=== PATIENT | female | born 1945 | race Caucasian/White ===

== ENCOUNTER 2016-12-30 10:07 | Emergency (ER) | payer OTHER ==
[2016-12-30 09:44] LABS: BASOPHILS 0.5 %; BASOPHILS ABSOLUTE 0.03 10/3/uL (0.0-0.16); EOSINOPHILS 0.7 %; EOSINOPHILS ABSOLUTE 0.04 10/3/uL (0.0-0.53); ER CBC TAT 0 Hrs 03 Mins; HEMATOCRIT 40.1 % (36.0-48.0); HEMOGLOBIN 13.6 g/dL (12.0-16.0); IMMATURE GRANULOCYTES 0.3 %; IMMATURE GRANULOCYTES ABSOLUTE 0.02 10/3/uL (0.0-0.11); LYMPHOCYTES 16.8 %; LYMPHOCYTES ABSOLUTE 0.99 10/3/uL (0.67-4.30); MEAN CORPUS HGB CONC 33.9 g/dL (32.0-36.0); MEAN CORPUSCULAR HEMOGLOB 29.9 pg (26.0-34.0); MEAN CORPUSCULAR VOLUME 88.1 fL (80-100); MEAN PLATELET VOLUME 9.4 fL (9.2-13.0); MONOCYTES 6.8 %; NEUTROPHILS 74.9 %; NEUTROPHILS ABSOLUTE 4.42 10/3/uL (2.02-8.40); PLATELET COUNT 280 10/3/uL (150-400); RBC DISTRIBUTION WIDTH 14.2 % (12.0-16.0); RED CELL COUNT 4.55 10/6/uL (4.0-5.6); WHITE BLOOD CELLS 5.9 10/3/uL (4.5-10.5)
[2016-12-30 09:45] LABS: MANUAL DIFF NO %
[2016-12-30 09:52] LABS: PARTIAL THROMBO TIME 24.4 SEC (22.5-37.2); PROTIME (NOT ORD) 12.9 SEC (12.0-14.5)
[2016-12-30 10:01] LABS: BUN (BLOOD UREA NITROGEN) 21 MG/DL (6-23); CALCIUM, SERUM 9.2 MG/DL (8.5-10.4); CHEST PAIN PROFILE TAT 0 Hrs 20 Mins; CHLORIDE, SERUM 93 MMOL/L (96-112); CO2 (CARBON DIOXIDE) 27 MMOL/L (24-34); CREATININE 1.22 MG/DL (0.55-1.02); GFR AFRICAN AMERICAN 52 ML/MIN (>=60); GFR NON AFRICAN AMERICAN 45 ML/MIN (>=60); GLUCOSE, SERUM 558 MG/DL (60-99); POTASSIUM, SERUM 4.2 MMOL/L (3.5-5.3); SODIUM, SERUM 131 MMOL/L (135-148); TROPONIN I <0.02 NG/ML (<0.05)
[~2016-12-30 10:07] MED LIST: ADDERALL30 MG PO; ADDERXR10 PO; ASAB PO; BUDEPRION150 MG PO; BUM2 PO; BUPROBAN150 MG PO; C5; CAT1 PO; CENTRUM SILVER PO; FLEX PO; FORTAMET1000 MG PO; GLUCOPHAGE1000 MG PO; GLUCXL2.5 PO; GLUMETZA500 MG PO; HYGROTON 25 MG25 MG PO; IMDUR30 PO; ISORDTITRA PO; ISOSORB DIN30 MG PO; ISOSORBIDE MONONITRA PO; JANUMET1 TAB PO; KAPIDEX60 MG PO; L40 PO; LANTUS SC; LEVEMIR SC; LEVOTHYROXIN112 MCG PO; LEVOTHYROXIN75 MCG PO; LOP25 PO; LOTE20 PO; LOTE40 PO; MAXITOINT OPH; METADATE CD10 MG OR; MIRAPEX250 PO; MIRAPEX5 PO; NEUR300 PO; NORV10 PO; NOVOLOG SC; OXYIR5 MG PO; PRILO PO; PRILOSEC40 MG PO; PROAIR HFA INH; PROVHFA INH; RITALIN LA30 MG PO; RITALIN20 PO; SPIRO25 PO; SYN112 PO; TYLENOL #3 PO; VENTOLIN HFA INH; VICTOZA18 MG/3 ML SC; VITAMIN D1000 UNI1 PO; VITAMIN D2000 UNIT PO; WELL75 PO; X5 PO; ZANTAC 75 PO; ZOL100 PO; ZOL50 PO; ZYRTEC ALLGY10 MG PO
[2017-06-05] MEDS ORDERED: ZYRTEC ALLGY10 MG PO (14:54)
[2017-06-05] MEDS ORDERED: SINGULAIR1 PO (14:55)
[2017-06-05] MEDS ORDERED: GLUCOPHAGE1000 MG PO (14:57)
[2017-06-05] MEDS ORDERED: LOZOLTAB PO (14:59)
[2017-06-05] MEDS ORDERED: HUMALOG SC (15:00)
[2017-07-19] MEDS ORDERED: BASAGLAR K100 UNIT/1 SC (17:07)
== END 2016-12-30 15:23 | disposition home or self-care (01) ==
LOC: ER 10:07
PROVIDERS: Emergency Medicine
DX: R07.89 Other chest pain (principal); E11.65 Type 2 diabetes mellitus with hyperglycemia; I12.9 Hypertensive chronic kidney disease with stage 1 through stage 4 chronic kidney disease, or unspecified chronic kidney disease; N18.9 Chronic kidney disease, unspecified; K21.9 Gastro-esophageal reflux disease without esophagitis; Z88.0 Allergy status to penicillin; Z79.4 Long term (current) use of insulin; Z79.82 Long term (current) use of aspirin
CPT/HCPCS: 71010; 71100-LT; 80048; 82962; 83735; 84484; 85025; 85610; 85730; 93005; 99285; A9270-GY